=== PATIENT | female | born 1945 | race Caucasian/White ===

== ENCOUNTER 2024-02-19 09:56 | Outpatient (OUT) | payer MEDICARE, SELFPAY ==
--- NOTE | 2024-02-19 10:10 | ECG_ITS ---
[facility] Test Date: 2024-02-19 Pat Name: HANY CAMARENA Department: Room: - Gender: Female Hospice Aide: : 1945 Requested By: 2021 Order Number: [id number] Reading MD: CHRISTIANO ORTIZ Measurements Intervals Campbell Rate: 76 P: 48 MA: 186 QRS: -9 QRSD: 84 T: 36 QT: 407 QTc: 459 Interpretive Statements SINUS RHYTHM NONSPECIFIC ST & T-WAVE ABNORMALITY No previous ECG available for comparison Electronically Signed On 02-19-2024 20:15:44 EST by CHRISTIANO ORTIZ
== END 2024-02-19 09:57 | disposition home or self-care (01) ==
LOC: PST 10:07
PROVIDERS: Visit Provider Surgery
DX: Z01.810 Encounter for preprocedural cardiovascular examination (principal); K80.81 Other cholelithiasis with obstruction
CPT/HCPCS: 93005